=== PATIENT | female | born 1990 | race Caucasian/White ===

== ENCOUNTER → 2025-06-09 | Day surgery (SDC) | payer OTHER ==
[~2025-06-09] MED LIST: BUPIVACAINE LIPOSOME/PF 266 MG/20 ML IJ ONE; DEXAMETHASONE SOD PHOS INJ 4 MG/ML SDV ONE; DIPHENHYDRAMINE HCL INJ 50 MG/ML VIAL ONE; ENTYVIO300 MG IV; EYE LUBRICANT OPTH OINT 3.5GM TUBE OP ONE; FAMOTIDINE 20 MG/2 ML VIAL IV ONE; GLYCOPYRROLATE INJ 0.2 MG/ML VIAL ONE; KETAMINE HCL INJ 50 MG/ML 10 ML VIAL ONE; LIDOCAINE HCL 2% LOCAL INJ 5 ML SDV VIAL INJ ONE; MIDAZOLAM HCL 2 MG/2 ML VIAL ONE; NEOSTIGMINE 1 MG/ML 10ML VIAL ONE; NEURONTIN300 MG PO; ONDANSETRON HCL INJ 2MG/ML 2ML 2 MG/ML VIAL ONE; OXYCODONE/ACETAMINOPHEN 5-325 1 EACH TABLET ONE; PROPOFOL IV EMULSION 10 MG/ML 20 ML VIAL ONE; ROBAXIN100 MG/1 M PO; ROCURONIUM BROMIDE 1 ML IV ONE; SCOPOLAMINE 1 MG PATCH ONE
[2025-06-09] MEDS: LACTATED RINGER'S 1,000 ML ONE (08:46)
[2025-06-09] MEDS: CEFAZOLIN SODIUM 2 GM ONE (08:46)
[2025-06-09] MEDS: MEPERIDINE HCL INJ 25 MG/ML VIAL ONE (09:52)
[2025-06-09] MEDS: HYDROMORPHONE 1MG/1ML INJ ONE (10:08)
[2025-06-09 10:20] VITALS: TEMP 97.3
[2025-06-09] MEDS: OXYCODONE/ACETAMINOPHEN 5-325 1 EACH TABLET PO ONE (10:58)
[2025-06-09 11:15] VITALS: BP 130/72; PULSE 86; RESP 16; O2SAT 98
== END | disposition home or self-care (01) ==
LOC: OR 05:28
PROVIDERS: ATTEND Orthopaedic Surgery Sports Medicine
DX: S83.222A Peripheral tear of medial meniscus, current injury, left knee, initial encounter (principal); D64.9 Anemia, unspecified; Z98.890 Other specified postprocedural states; E78.5 Hyperlipidemia, unspecified; K21.9 Gastro-esophageal reflux disease without esophagitis; K50.90 Crohn's disease, unspecified, without complications; K75.9 Inflammatory liver disease, unspecified; K90.0 Celiac disease; F41.9 Anxiety disorder, unspecified; W54.1XXA Struck by dog, initial encounter; Z88.6 Allergy status to analgesic agent; Z91.040 Latex allergy status; Z88.8 Allergy status to other drugs, medicaments and biological substances; Z91.048 Other nonmedicinal substance allergy status; Z79.899 Other long term (current) drug therapy
CPT/HCPCS: 29882; 81025; C1713 ×2; J0666; J1100; J1171; J1200; J1308; J2003; J2175; J2250; J2405; J2704; J2710; J7121